=== PATIENT | male | born 1965 | race Caucasian/White ===

== ENCOUNTER 2023-07-18 14:35 | Emergency (ER) | payer SELFPAY ==
[~2023-07-18] VITALS: Ht 167.6 cm; Wt 99.8 kg
[2023-07-18 14:38] VITALS: BP_SYST 187; PULSE 57; RESP 22; TEMP 98.3; O2SAT 98
[2023-07-18] MEDS ORDERED: SULF1TAB47 PO (14:53)
[2023-07-18] MEDS ORDERED: LISI20TA30 PO (14:53)
[2023-07-18 16:21] VITALS: BP_SYST 157; PULSE 82; RESP 20; TEMP 98; O2SAT 97
== END 2023-07-18 15:03 ==
LOC: SED 14:35
DX: L02.31 Cutaneous abscess of buttock (principal); L02.416 Cutaneous abscess of left lower limb; I10 Essential (primary) hypertension; Z79.899 Other long term (current) drug therapy
CPT/HCPCS: 82948; 99283